=== PATIENT | female | born 1970 | race Two or more races ===

== ENCOUNTER 2023-02-18 06:26 | Outpatient (CLI) | payer OTHER | END 2023-02-18 06:38 | disposition home or self-care (01) | LOC: LAB 06:26 | PROVIDERS: ATTEND Internal Medicine Hematology & Oncology | DX: D50.8 Other iron deficiency anemias (principal); R79.9 Abnormal finding of blood chemistry, unspecified; I10 Essential (primary) hypertension; R74.02 Elevation of levels of lactic acid dehydrogenase [LDH]; K76.89 Other specified diseases of liver; D51.1 Vitamin B12 deficiency anemia due to selective vitamin B12 malabsorption with proteinuria; E03.8 Other specified hypothyroidism; E06.3 Autoimmune thyroiditis; D47.2 Monoclonal gammopathy; C90.00 Multiple myeloma not having achieved remission; E78.2 Mixed hyperlipidemia ==

== ENCOUNTER 2023-05-28 06:34 | Outpatient (CLI) | payer OTHER | END 2023-05-28 06:35 | disposition home or self-care (01) | LOC: LAB 06:34 | PROVIDERS: ATTEND Internal Medicine Hematology & Oncology | DX: D50.8 Other iron deficiency anemias (principal); R79.9 Abnormal finding of blood chemistry, unspecified; I10 Essential (primary) hypertension; R74.02 Elevation of levels of lactic acid dehydrogenase [LDH]; K76.89 Other specified diseases of liver; E03.8 Other specified hypothyroidism; D63.8 Anemia in other chronic diseases classified elsewhere; D51.8 Other vitamin B12 deficiency anemias; E83.52 Hypercalcemia; D89.0 Polyclonal hypergammaglobulinemia; E06.3 Autoimmune thyroiditis; E78.2 Mixed hyperlipidemia ==

== ENCOUNTER 2023-12-20 06:18 | Outpatient (CLI) | payer OTHER ==
[2023-12-20 07:34] LABS: HEMOGLOBIN 13.3 g/dL (12.0-15.00); MEAN CELL VOLUME 87.8 fL (80.00-100.00); MEAN CORPUSCULAR HEMOGLOBIN 30.6 pg (27.00-32.0); MEAN CORPUSCULAR HGB CONC 34.9 g/dl (32.0-36.0); PLATELET COUNT 299 K/uL (150-450); RED BLOOD COUNT 4.33 M/uL (4.00-6.00); RED CELL DISTRIBUTION WIDTH 13.2 % (11.5-14.5)
[2023-12-20 08:15] LABS: ALBUMIN 4.1 gm/dL (3.4-5.0); BILIRUBIN TOTAL 0.61 mg/dL (0.3-1.2); CALCIUM 9.5 mg/dL (8.5-10.1); CREATININE SERUM 0.81 mg/dL (0.55-1.02); GFR 73.96; GLOBULINA 4.2 G/DL (2.4-3.5); POTASSIUM 3.93 mEq/L (3.5-5.1); TOTAL PROTEIN 8.3 gm/dL (6.4-8.2)
[2023-12-20 11:04] LABS: FOLIC ACID > 20.00 ng/ml (4.78-20)
[2023-12-20 13:06] LABS: MANUAL PLATELET COUNT 386
[2023-12-20 13:07] LABS: PLATELET ESTIMATE NORMAL (NORMAL)
[2023-12-21 13:07] LABS: kappa lambda r 2.36 (0.26-1.65); kappa light 27.8 mg/L (3.3-19.4); lambda light 11.8 mg/L (5.7-26.3)
[2023-12-22 13:05] LABS: BETA-2-MICROGLOBULINA 1.1 mg/L (0.6-2.4)
[2023-12-24 15:08] LABS: alp 0 % (.); alph 2 0 % (.); beta 0 % (.); gam 0 % (.); m spi 0 % (Not Observed); prot < 4.0 mg/dL (Not Estab.)
[2023-12-25 13:07] LABS: IMM A 286 mg/dL (87-352); IMM G 1649 mg/dL (586-1602); IMM M 41 mg/dL (26-217); a:g ratio 0.9 (0.7-1.7); alpha 1 g 0.2 g/dL (0.0-0.4); alpha 2 0.9 g/dL (0.4-1.0); beta g 1.3 g/dL (0.7-1.3); gamma g 1.7 g/dL (0.4-1.8); globulin t 4.2 g/dL (2.2-3.9); m spike Not Observed g/dL (Not Observed)
== END 2023-12-20 06:19 | disposition home or self-care (01) ==
LOC: LAB 06:18
PROVIDERS: ATTEND Internal Medicine Hematology & Oncology
DX: D89.0 Polyclonal hypergammaglobulinemia (principal); E03.8 Other specified hypothyroidism; E06.3 Autoimmune thyroiditis; E78.2 Mixed hyperlipidemia; D50.8 Other iron deficiency anemias; K76.89 Other specified diseases of liver; R74.02 Elevation of levels of lactic acid dehydrogenase [LDH]; R79.9 Abnormal finding of blood chemistry, unspecified; C90.00 Multiple myeloma not having achieved remission

== ENCOUNTER 2025-01-22 06:35 | Outpatient (CLI) | payer OTHER ==
[2025-01-22 07:32] LABS: HEMATOCRIT 38.8 % (36.0-45.00); HEMOGLOBIN 13.1 g/dL (12.0-15.00); MEAN CORPUSCULAR HEMOGLOBIN 29.4 pg (27.00-32.0); MEAN CORPUSCULAR HGB CONC 33.8 g/dl (32.0-36.0); PLATELET COUNT 265 K/uL (150-450); RED BLOOD COUNT 4.46 M/uL (4.00-6.00); RED CELL DISTRIBUTION WIDTH 13.4 % (11.5-14.5)
[2025-01-22 08:29] LABS: ALBUMIN 3.8 gm/dL (3.4-5.0); BILIRUBIN TOTAL 0.31 mg/dL (0.3-1.2); CALCIUM 8.8 mg/dL (8.5-10.1); CREATININE SERUM 0.61 mg/dL (0.55-1.02); GFR 102.21; POTASSIUM 4.19 mEq/L (3.5-5.1); TOTAL PROTEIN 7.8 gm/dL (6.4-8.2)
[2025-01-22 08:55] LABS: MANUAL PLATELET COUNT 338
[2025-01-22 15:11] LABS: FOLIC ACID 7.75 ng/ml (4.78-20)
[2025-01-26 11:12] LABS: kappa lambda r 2.35 (0.26-1.65); kappa light 22.3 mg/L (3.3-19.4); lambda light 9.5 mg/L (5.7-26.3)
== END 2025-01-22 06:41 | disposition home or self-care (01) ==
LOC: LAB 06:35
PROVIDERS: ATTEND Internal Medicine Hematology & Oncology
DX: D50.8 Other iron deficiency anemias (principal); R79.9 Abnormal finding of blood chemistry, unspecified; I10 Essential (primary) hypertension; R74.02 Elevation of levels of lactic acid dehydrogenase [LDH]; K76.89 Other specified diseases of liver; D51.8 Other vitamin B12 deficiency anemias; C90.00 Multiple myeloma not having achieved remission; D89.0 Polyclonal hypergammaglobulinemia; E03.8 Other specified hypothyroidism; E06.3 Autoimmune thyroiditis; E78.2 Mixed hyperlipidemia